=== PATIENT | male | born 1995 | race Caucasian/White ===

== ENCOUNTER 2017-12-27 09:19 | Emergency (ER) | payer BC, OTHER ==
[~2017-12-27] VITALS: Ht 177.8 cm; Wt 77.1 kg
[2017-12-27 13:08] VITALS: BP 135/60
== END 2017-12-27 13:37 | disposition home or self-care (01) ==
LOC: ER 09:19
DX: S93.401A Sprain of unspecified ligament of right ankle, initial encounter (principal); V00.131A Fall from skateboard, initial encounter; Y93.51 Activity, roller skating (inline) and skateboarding; Y99.8 Other external cause status; Y92.89 Other specified places as the place of occurrence of the external cause
CPT/HCPCS: 29125; 29515; 73610

== ENCOUNTER 2018-04-25 01:19 | Emergency (ER) | payer BC ==
[~2018-04-25] VITALS: Ht 175.3 cm; Wt 79.4 kg
[2018-04-25 10:16] VITALS: BP 120/74
== END 2018-04-25 11:07 | disposition home or self-care (01) ==
LOC: ER 01:19
DX: R07.89 Other chest pain (principal); J45.909 Unspecified asthma, uncomplicated
CPT/HCPCS: 71046; 93005

== ENCOUNTER 2020-11-02 15:11 | Emergency (ER) | payer BC ==
[~2020-11-02] VITALS: Ht 177.8 cm; Wt 90.7 kg
[2020-11-02 15:55] VITALS: BP 119/44
[2020-11-02] MEDS ORDERED: IBUPROFEN 800 MG TAB PO ONE (17:45)
== END 2020-11-02 17:58 | disposition home or self-care (01) ==
LOC: ER 15:11
DX: S82.55XA Nondisplaced fracture of medial malleolus of left tibia, initial encounter for closed fracture (principal); X50.0XXA Overexertion from strenuous movement or load, initial encounter; Y93.67 Activity, basketball; Y92.89 Other specified places as the place of occurrence of the external cause; Y99.8 Other external cause status
CPT/HCPCS: 29515; 73610